=== PATIENT | male | born 1960 | race Two or more races ===

== ENCOUNTER 2021-07-28 08:01 | Emergency (ER) | payer OTHER ==
[~2021-07-28] VITALS: Ht 177.8 cm; Wt 81.6 kg
[2021-07-28 08:07] VITALS: BP 142/79
--- NOTE | 2021-07-28 10:25 | NUR ---
discharge in no distress denies any pain accompanied by [employer].
== END 2021-07-28 10:25 ==
LOC: ER 08:28
DX: Z02.89 Encounter for other administrative examinations (principal); I10 Essential (primary) hypertension

== ENCOUNTER 2025-03-25 17:29 | Emergency (ER) | payer MEDICAID, OTHER ==
[~2025-03-25] VITALS: Ht 177.8 cm; Wt 72.6 kg
[2025-03-25 19:11] LABS: PLATELET COUNT (AUTO) 121 K/uL (150-450); RED BLOOD CELL COUNT(AUTO) 3.26 MIL/uL (4.5-6.0); RED CELL DISTRIBUTION WIDTH 13.4 % (11.5-15.0); WHITE BLOOD COUNT (AUTO) 3.2 K/uL (4.3-11.0)
[2025-03-25 19:15] LABS: CALCIUM, SERUM 8.1 mg/dL (8.5-10.1); CREATININE 1.3 mg/dL (0.6-1.3); SODIUM SERUM 136 mmol/L (136-145); UREA NITROGEN, BLOOD 19 mg/dL (7-18)
[2025-03-25 19:20] LABS: ALCOHOL, BLOOD < 3 mg/dL (0-10); ASPARTATE AMINOTRANSFERASE 24 U/L (15-37); TOTAL PROTEIN, SERUM 6.8 g/dL (6.4-8.2)
[2025-03-25] MEDS ORDERED: ACETAMINOPHEN ES 500 MG TABLET ONE (19:20)
[2025-03-25] MEDS ORDERED: IBUPROFEN 600 MG TABLET ONE (19:21)
[2025-03-25] MEDS: IBUPROFEN 600 MG TABLET PO ONE (19:23)
[2025-03-25] MEDS: ACETAMINOPHEN ES 500 MG TABLET PO ONE (19:23)
[2025-03-25 21:22] LABS: LYMPHOCYTES % (MANUAL) 13 % (16-48); MONOCYTES % (MANUAL) 20 % (0-11.0); NEUTROPHILS % (MANUAL) 67 (42-76); PLATELET ESTIMATE DECREASED
[2025-03-25] MEDS ORDERED: OLANZAPINE 10 MG VIAL IM ONE (21:29)
[2025-03-25] MEDS: OLANZAPINE 10 MG VIAL IM ONE (21:33)
[2025-03-26 02:36] VITALS: BP 150/91; TEMP 98.7; O2SAT 98
== END 2025-03-26 02:36 ==
LOC: ER 17:33
DX: F99 Mental disorder, not otherwise specified (principal); I11.9 Hypertensive heart disease without heart failure; F20.9 Schizophrenia, unspecified; F31.9 Bipolar disorder, unspecified; Z59.02 Unsheltered homelessness; Z79.899 Other long term (current) drug therapy; Z20.822 Contact with and (suspected) exposure to COVID-19
CPT/HCPCS: 99285; 96372; 93005; 71045; 85027; 80048; 80076; 85007; 87081; 87426; 80143; 80320; 80307; J3490; 36415; G0480